=== PATIENT | male | born 1950 | race Caucasian/White ===

== ENCOUNTER → 2022-07-26 | Day surgery (SDC) | payer OTHER ==
[~2022-07-26] VITALS: Ht 162.6 cm; Wt 60.8 kg
[~2022-07-26] MED LIST: BUPROPION HCL150 M1 PO; DAILY VITAMIN1 EAC2 PO; FLOMAX0.4 MG PO; INDERAL20 MG PO; LIDOCAINE VISC100 M1 SSP; LOVAZA1 GM PO; MYSOLINE50 MG PO; NORCO 5-325 TA1 EACH PO; PERCOCET 5-3251 EACH PO; PRIMIDONE250 MG PO; SPIRIVA RESPIMAT4 GM INH; VITAMIN D310 MC1 PO; ZOFRAN4 MG PO
[2022-07-26 11:45] LABS: HCT 43.3 % (42.0-52.0); HGB 14.7 g/dl (13.2-18.0); MCHC 33.9 g/dL (32.0-36.0); MCV 97.3 fL (78.0-100.0); MPV 9.4 fL (6.0-9.5); RBC 4.45 M/uL (4.70-6.00); RDW 13.3 % (11.5-14.0); WBC 8.6 K/uL (4.0-10.5)
[2022-07-26 12:03] LABS: ALBUMIN 2.8 g/dL (3.4-5.0); BILIRUBIN - TOTAL 0.5 mg/dL (0.2-1.0); BUN/CREAT RATIO (CALC) 8.4 RATIO; CREATININE 0.83 mg/dL (0.67-1.17); GLOBULIN (CALCULATION) 3.3 g/dL; POTASSIUM 3.8 mmol/L (3.5-5.1); TOTAL PROTEIN 6.1 g/dL (6.4-8.2)
== END | disposition home or self-care (01) ==
LOC: FAS 10:42
PROVIDERS: Surgery
DX: C15.4 Malignant neoplasm of middle third of esophagus (principal); I87.2 Venous insufficiency (chronic) (peripheral); R63.30 Feeding difficulties, unspecified
CPT/HCPCS: 36415; 71045; 76000; 80053; 94664; C1788; J0690; J1644; J2704; J3010; J7120